=== PATIENT | female | born 1960 | race Two or more races ===

== ENCOUNTER 2020-11-22 20:08 | Inpatient (IN) | payer BC, MEDICAID ==
[~2020-11-22] VITALS: Ht 162.6 cm; Wt 96.8 kg
[2020-11-22 20:42] LABS: Basophils # (auto) 0.1 10 ^3/uL (0-0.2); Basophils % (auto) 0.7 % (0.0-2.0); Eosinophils # (auto) 0.4 10 ^3/uL (0-0.8); Eosinophils % (auto) 2.7 % (0.0-7.0); Hematocrit 36.8 % (36.0-46.0); Hemoglobin 12.6 g/dL (12.2-16.2); Lymphocytes # (auto) 3.1 10 ^3/uL (0.4-5.4); Lymphocytes % (auto) 22.7 % (10.0-50.0); Mean Corpuscular Hemoglobin 30.2 pg (28.0-32.0); Mean Corpuscular Hgb Conc. 34.3 g/dL (32.0-36.0); Mean Corpuscular Volume 88.1 fL (80.0-100.0); Monocytes # (auto) 1.1 10 ^3/uL (0-1.3); Monocytes % (auto) 8.2 % (0.0-12.0); Neutrophils # (auto) 9.1 10 ^3/uL (1.6-8.6); Neutrophils % (auto) 65.7 % (37.0-80.0); Red Blood Cells 4.18 10^6/uL (4.0-5.20); White Blood Cell 13.8 10^3/uL (4.4-10.8)
[2020-11-22 20:54] LABS: Alanine Aminotransferase 76 U/L (13-56); Albumin 2.7 g/dL (3.4-5.0); Amylase 49 U/L (25-115); Anion Gap 10 (5-15); Aspartate Aminotransferase 23 U/L (15-37); BUN/Creatinine Ratio 14.3; Blood Urea Nitrogen 12 mg/dL (7-18); Calcium 8.3 mg/dL (8.5-10.1); Carbon Dioxide 24 mmol/L (21-32); Chloride 101 mmol/L (98-107); GFR African American 89 mL/min; GFR Non-African American 74 mL/min; Glucose 106 mg/dL (74-106); Lipase 127 U/L (73-393); Potassium 3.4 mmol/L (3.5-5.1); Sodium 135 mmol/L (136-145)
[2020-11-22 20:59] LABS: Alkaline Phosphatase 172 U/L (45-117); Bilirubin, Total 0.3 mg/dL (0.2-1.0); Total Protein 8.2 g/dL (6.4-8.2)
[2020-11-22] MEDS ORDERED: IOHEXOL 300 MG/ML 100ML BOTTLE IJ ONE (21:22)
[2020-11-22 21:44] LABS: Urine Bacteria FEW /hpf (None Seen); Urine Blood 2+ /uL (Negative); Urine Hyaline Cast MOD /lpf (0 - 2); Urine Mucus FEW (None Seen); Urine Specific Gravity 1.036 (1.001-1.035); Urine WBC 33 /hpf (0 - 5)
[2020-11-22] MEDS ORDERED: levoFLOXacin 750MG 150 ML IV ONE (23:00)
[2020-11-22] MEDS ORDERED: metroNIDAZOLE 500MG/100ML 100 ML IV ONE (23:00)
[2020-11-22] MEDS ORDERED: fentaNYL CITRATE 100 MCG/2 ML VL IV ONE (23:00)
[2020-11-23] VITALS (7 sets, daily range): BP systolic 131–155; BP diastolic 64–80
[2020-11-23] MEDS ORDERED: NITROGLYCERIN 0.4 MG SL TAB SL PRN (00:15)
[2020-11-23] MEDS ORDERED: MORPHINE SULF INJ 2 MG/ML SYRINGE 1ML IV PRN (00:15)
[2020-11-23] MEDS ORDERED: DOCUSATE SOD 100 MG CAP PO PRN (00:15)
[2020-11-23] MEDS ORDERED: POTASSIUM CHL 20 Meq TABLET PO ONE (00:15)
[2020-11-23] MEDS ORDERED: TEMAZEPAM 15 MG CAP PO PRN (00:15)
[2020-11-23] MEDS: D5W/SOD CHLO 0.9% 1,000 ML IV SCH ×2 (00:54→14:28)
[2020-11-23] MEDS: ONDANSETRON HCL 4 MG/2 ML VIAL IV PRN ×2 (02:09→10:51)
[2020-11-23] MEDS ORDERED: SUCR1TAB PO (03:57)
[2020-11-23] MEDS ORDERED: OMEP20TA PO (03:57)
[2020-11-23] MEDS ORDERED: ACET-1156 PO (03:57)
[2020-11-23] MEDS ORDERED: FLUC150T2 PO (03:57)
[2020-11-23] MEDS: metroNIDAZOLE 500MG/100ML 100 ML IV SCH ×3 (05:54→21:17)
[2020-11-23 06:13] LABS: Basophils # (auto) 0.1 10 ^3/uL (0-0.2); Basophils % (auto) 0.5 % (0.0-2.0); Eosinophils # (auto) 0.1 10 ^3/uL (0-0.8); Eosinophils % (auto) 0.8 % (0.0-7.0); Hematocrit 34.4 % (36.0-46.0); Hemoglobin 11.9 g/dL (12.2-16.2); Lymphocytes # (auto) 1.4 10 ^3/uL (0.4-5.4); Lymphocytes % (auto) 12.6 % (10.0-50.0); Mean Corpuscular Hemoglobin 30.2 pg (28.0-32.0); Mean Corpuscular Hgb Conc. 34.5 g/dL (32.0-36.0); Mean Corpuscular Volume 87.5 fL (80.0-100.0); Monocytes # (auto) 0.8 10 ^3/uL (0-1.3); Monocytes % (auto) 6.9 % (0.0-12.0); Neutrophils # (auto) 8.8 10 ^3/uL (1.6-8.6); Neutrophils % (auto) 79.2 % (37.0-80.0); Nucleated Red Blood Cells % 0.1 %; Red Blood Cells 3.94 10^6/uL (4.0-5.20); Red Cell Distribution Width 13.9 % (11.8-14.3)
[2020-11-23 06:14] LABS: Potassium 3.8 mmol/L (3.5-5.1)
[2020-11-23 06:21] LABS: Albumin 2.5 g/dL (3.4-5.0); BUN/Creatinine Ratio 14.3; Bilirubin, Total 0.3 mg/dL (0.2-1.0); Calcium 8.1 mg/dL (8.5-10.1); Total Protein 7.5 g/dL (6.4-8.2)
[2020-11-23] MEDS ORDERED: FAMOTIDINE 20 MG TAB PO SCH (10:00)
[2020-11-23] MEDS: ZINC SULFATE 220mg CAP or TAB PO SCH (10:46)
[2020-11-23] MEDS: ASCORBIC ACID 500 MG TAB PO SCH ×2 (10:46→21:18)
[2020-11-23] MEDS: ENOXAPARIN SOD 40 MG/0.4 ML SYRINGE SC SCH (10:47)
[2020-11-23] MEDS: MULTIPLE VITAMIN TAB PO SCH (10:47)
[2020-11-23] MEDS: hydrALAZINE HCL 20 MG/ML VL IV PRN (12:21)
[2020-11-23] MEDS ORDERED: PANTOPRAZOLE 40 MG TAB PO ONE (12:45)
[2020-11-23 14:10] LABS: INR 1.09 (0.9-1.15)
[2020-11-23] MEDS: ACETAMINOPHEN 325 MG TAB PO PRN (14:27)
[2020-11-23] MEDS: SUCRALFATE 1 GM/10 ML ORAL SUSP PO SCH ×2 (17:31→21:18)
[2020-11-23] MEDS: PANTOPRAZOLE 40 MG TAB PO SCH (21:18)
[2020-11-23] MEDS: levoFLOXacin 500MG 100 ML IV SCH (22:40)
[2020-11-24] MEDS: D5W/SOD CHLO 0.9% 1,000 ML IV SCH ×2 (02:55→16:11)
[2020-11-24] MEDS: ACETAMINOPHEN 325 MG TAB PO PRN ×2 (04:12→20:32)
[2020-11-24 04:44] VITALS: BP 152/76
[2020-11-24 05:57] LABS: Basophils # (auto) 0 10 ^3/uL (0-0.2); Basophils % (auto) 0.3 % (0.0-2.0); Eosinophils # (auto) 0.1 10 ^3/uL (0-0.8); Eosinophils % (auto) 1.2 % (0.0-7.0); Hematocrit 30.8 % (36.0-46.0); Hemoglobin 10.8 g/dL (12.2-16.2); Lymphocytes # (auto) 1.7 10 ^3/uL (0.4-5.4); Lymphocytes % (auto) 17.4 % (10.0-50.0); Mean Corpuscular Hemoglobin 30.8 pg (28.0-32.0); Mean Corpuscular Hgb Conc. 35.1 g/dL (32.0-36.0); Mean Corpuscular Volume 87.7 fL (80.0-100.0); Monocytes # (auto) 0.8 10 ^3/uL (0-1.3); Monocytes % (auto) 7.8 % (0.0-12.0); Neutrophils # (auto) 7.1 10 ^3/uL (1.6-8.6); Neutrophils % (auto) 73.3 % (37.0-80.0); Nucleated Red Blood Cells % 0.1 %; Red Blood Cells 3.52 10^6/uL (4.0-5.20); Red Cell Distribution Width 14.2 % (11.8-14.3); White Blood Cell 9.7 10^3/uL (4.4-10.8)
[2020-11-24 06:13] LABS: Albumin 2.1 g/dL (3.4-5.0); Calcium 8.2 mg/dL (8.5-10.1); Potassium 3.5 mmol/L (3.5-5.1)
[2020-11-24 06:16] LABS: BUN/Creatinine Ratio 7.8
[2020-11-24 06:19] LABS: Bilirubin, Total 0.2 mg/dL (0.2-1.0); Total Protein 6.5 g/dL (6.4-8.2)
[2020-11-24] MEDS: metroNIDAZOLE 500MG/100ML 100 ML IV SCH ×3 (06:23→21:38)
[2020-11-24] MEDS: SUCRALFATE 1 GM/10 ML ORAL SUSP PO SCH ×4 (06:23→21:38)
[2020-11-24 06:45] VITALS: BP 145/70
[2020-11-24 09:00] VITALS: BP 122/69
[2020-11-24] MEDS: ASCORBIC ACID 500 MG TAB PO SCH ×2 (09:56→21:38)
[2020-11-24] MEDS: MULTIPLE VITAMIN TAB PO SCH (09:56)
[2020-11-24] MEDS: ENOXAPARIN SOD 40 MG/0.4 ML SYRINGE SC SCH (09:56)
[2020-11-24] MEDS: ZINC SULFATE 220mg CAP or TAB PO SCH (09:56)
[2020-11-24] MEDS: PANTOPRAZOLE 40 MG TAB PO SCH ×2 (09:56→21:38)
[2020-11-24 12:46] VITALS: BP 153/79
[2020-11-24] MEDS: hydrALAZINE HCL 20 MG/ML VL IV PRN (16:30)
[2020-11-24 16:37] VITALS: BP 166/77
[2020-11-24 22:00] VITALS: BP 145/75
[2020-11-24] MEDS: levoFLOXacin 500MG 100 ML IV SCH (22:59)
[2020-11-25] MEDS: SUCRALFATE 1 GM/10 ML ORAL SUSP PO SCH ×4 (05:42→21:41)
[2020-11-25] MEDS: metroNIDAZOLE 500MG/100ML 100 ML IV SCH ×3 (05:42→21:41)
[2020-11-25 05:47] VITALS: BP 146/82
[2020-11-25] MEDS: D5W/SOD CHLO 0.9% 1,000 ML IV SCH ×2 (06:33→18:55)
[2020-11-25 09:00] VITALS: BP 139/68
[2020-11-25] MEDS: MULTIPLE VITAMIN TAB PO SCH (09:41)
[2020-11-25] MEDS: ENOXAPARIN SOD 40 MG/0.4 ML SYRINGE SC SCH (09:41)
[2020-11-25] MEDS: ZINC SULFATE 220mg CAP or TAB PO SCH (09:41)
[2020-11-25] MEDS: PANTOPRAZOLE 40 MG TAB PO SCH ×2 (09:41→21:41)
[2020-11-25] MEDS: ACETAMINOPHEN 325 MG TAB PO PRN (09:41)
[2020-11-25] MEDS: ASCORBIC ACID 500 MG TAB PO SCH ×2 (09:41→21:42)
[2020-11-25 11:13] LABS: Hepatitis B Surface Antibody Negative
[2020-11-25 11:50] LABS: Hepatitis A Total Antibody Negative
[2020-11-25 13:00] VITALS: BP 156/85
[2020-11-25 13:12] LABS: Basophils # (auto) 0.1 10 ^3/uL (0-0.2); Basophils % (auto) 1.2 % (0.0-2.0); Eosinophils # (auto) 0.1 10 ^3/uL (0-0.8); Eosinophils % (auto) 1.3 % (0.0-7.0); Hematocrit 35.6 % (36.0-46.0); Hemoglobin 12.2 g/dL (12.2-16.2); Lymphocytes # (auto) 2.3 10 ^3/uL (0.4-5.4); Lymphocytes % (auto) 26.7 % (10.0-50.0); Mean Corpuscular Hemoglobin 30.2 pg (28.0-32.0); Mean Corpuscular Hgb Conc. 34.4 g/dL (32.0-36.0); Mean Corpuscular Volume 87.8 fL (80.0-100.0); Monocytes # (auto) 0.6 10 ^3/uL (0-1.3); Monocytes % (auto) 6.5 % (0.0-12.0); Neutrophils # (auto) 5.6 10 ^3/uL (1.6-8.6); Neutrophils % (auto) 64.3 % (37.0-80.0); Red Blood Cells 4.05 10^6/uL (4.0-5.20); Red Cell Distribution Width 14.4 % (11.8-14.3); White Blood Cell 8.8 10^3/uL (4.4-10.8)
[2020-11-25 13:18] LABS: Hepatitis B Core Total AB Negative
[2020-11-25 13:19] LABS: Hepatitis B Surface Antigen Negative (Negative)
[2020-11-25 13:29] LABS: Calcium 8.6 mg/dL (8.5-10.1); Potassium 3.4 mmol/L (3.5-5.1)
[2020-11-25 13:35] LABS: Albumin 2.7 g/dL (3.4-5.0); BUN/Creatinine Ratio 4.6; Bilirubin, Total 0.2 mg/dL (0.2-1.0); Total Protein 7.7 g/dL (6.4-8.2)
[2020-11-25 17:20] VITALS: BP 150/77
[2020-11-25] MEDS: hydrALAZINE HCL 20 MG/ML VL IV PRN (21:40)
[2020-11-25] MEDS: levoFLOXacin 500MG 100 ML IV SCH (22:48)
[2020-11-25] MEDS: HYDROcodone-ACET 5/325MG TAB PO PRN (23:03)
[2020-11-26 05:00] VITALS: BP 146/76
[2020-11-26] MEDS: SUCRALFATE 1 GM/10 ML ORAL SUSP PO SCH ×4 (07:06→22:00)
[2020-11-26] MEDS: metroNIDAZOLE 500MG/100ML 100 ML IV SCH ×3 (07:06→21:36)
[2020-11-26] MEDS: D5W/SOD CHLO 0.9% 1,000 ML IV SCH (08:15)
[2020-11-26 09:00] VITALS: BP 158/72
[2020-11-26] MEDS: PANTOPRAZOLE 40 MG TAB PO SCH ×2 (09:56→21:36)
[2020-11-26] MEDS: MULTIPLE VITAMIN TAB PO SCH (09:57)
[2020-11-26] MEDS: ENOXAPARIN SOD 40 MG/0.4 ML SYRINGE SC SCH (09:57)
[2020-11-26] MEDS: ZINC SULFATE 220mg CAP or TAB PO SCH (09:57)
[2020-11-26] MEDS: ASCORBIC ACID 500 MG TAB PO SCH ×2 (09:57→21:36)
[2020-11-26 10:21] LABS: Basophils # (auto) 0 10 ^3/uL (0-0.2); Basophils % (auto) 0.2 % (0.0-2.0); Eosinophils # (auto) 0.1 10 ^3/uL (0-0.8); Eosinophils % (auto) 1.6 % (0.0-7.0); Hematocrit 36.3 % (36.0-46.0); Hemoglobin 12.5 g/dL (12.2-16.2); Lymphocytes # (auto) 2.2 10 ^3/uL (0.4-5.4); Lymphocytes % (auto) 25.1 % (10.0-50.0); Mean Corpuscular Hemoglobin 30.2 pg (28.0-32.0); Mean Corpuscular Hgb Conc. 34.4 g/dL (32.0-36.0); Mean Corpuscular Volume 87.7 fL (80.0-100.0); Monocytes # (auto) 0.7 10 ^3/uL (0-1.3); Monocytes % (auto) 8.7 % (0.0-12.0); Neutrophils # (auto) 5.5 10 ^3/uL (1.6-8.6); Neutrophils % (auto) 64.4 % (37.0-80.0); Nucleated Red Blood Cells % 0.1 %; Red Blood Cells 4.14 10^6/uL (4.0-5.20); Red Cell Distribution Width 14.4 % (11.8-14.3); White Blood Cell 8.6 10^3/uL (4.4-10.8)
[2020-11-26 10:41] LABS: Calcium 8.8 mg/dL (8.5-10.1); Potassium 3.4 mmol/L (3.5-5.1)
[2020-11-26 12:30] VITALS: BP 153/78
[2020-11-26 17:00] VITALS: BP 149/68
[2020-11-26] MEDS: levoFLOXacin 500MG 100 ML IV SCH (20:33)
[2020-11-26 22:00] VITALS: BP 136/77
[2020-11-27 05:00] VITALS: BP 139/78
[2020-11-27] MEDS: metroNIDAZOLE 500MG/100ML 100 ML IV SCH ×3 (06:00→21:34)
[2020-11-27] MEDS: SUCRALFATE 1 GM/10 ML ORAL SUSP PO SCH ×4 (06:32→21:33)
[2020-11-27] MEDS ORDERED: LIDOCAINE W/ EPINEPHRINE 1% 20ML VIAL ONE (06:59)
[2020-11-27] MEDS ORDERED: BUPIVACAINE 0.25% INJ 50ML VIAL ONE (06:59)
[2020-11-27 08:00] VITALS: BP 143/80
[2020-11-27] MEDS ORDERED: ONDANSETRON HCL 4 MG/2 ML VIAL IV ONE (08:10)
[2020-11-27] MEDS ORDERED: ceFAZolin 1GM/50ML 100 ML IV ONE (08:19)
[2020-11-27] MEDS ORDERED: SUCCINYLCHOLINE CHLORIDE 20 MG/ML 10ML VIAL IV ONE (08:32)
[2020-11-27] MEDS ORDERED: fentaNYL CITRATE 5 ML ONE (08:35)
[2020-11-27] MEDS ORDERED: MIDAZOLAM HCL 1MG/1ML-2 ML VIAL ONE (08:35)
[2020-11-27] MEDS ORDERED: ROCURONIUM 10MG/ML 10ML VIAL IV ONE (08:35)
[2020-11-27] MEDS: ENOXAPARIN SOD 40 MG/0.4 ML SYRINGE SC SCH (10:00)
[2020-11-27] MEDS ORDERED: GLYCOPYRROLATE 0.2 MG/ML 1ML VIAL ONE (10:16)
[2020-11-27] MEDS ORDERED: NEOSTIGMINE 1 MG/ML INJ (10mg/10ML VIAL) ONE (10:16)
[2020-11-27] MEDS ORDERED: HYDROmorphone HCL 2 MG/ML VL ONE (10:37)
[2020-11-27] MEDS: HYDROmorphone HCL 2 MG/ML VL IV PRN ×3 (10:40→11:00)
[2020-11-27] MEDS ORDERED: HYDROmorphone HCL 2 MG/ML VL IV PRN (10:45)
[2020-11-27] MEDS ORDERED: ONDANSETRON HCL 4 MG/2 ML VIAL IV PRN (10:45)
[2020-11-27] MEDS: MULTIPLE VITAMIN TAB PO SCH (12:14)
[2020-11-27] MEDS: PANTOPRAZOLE 40 MG TAB PO SCH ×2 (12:14→21:34)
[2020-11-27] MEDS: ASCORBIC ACID 500 MG TAB PO SCH ×2 (12:14→21:34)
[2020-11-27] MEDS: ZINC SULFATE 220mg CAP or TAB PO SCH (12:15)
[2020-11-27 13:00] VITALS: BP 142/75
[2020-11-27] MEDS: ONDANSETRON HCL 4 MG/2 ML VIAL IV PRN ×2 (13:14→23:14)
[2020-11-27] MEDS: HYDROcodone-ACET 5/325MG TAB PO PRN ×2 (13:19→20:24)
[2020-11-27] MEDS: ACETAMINOPHEN 325 MG TAB PO PRN (16:12)
[2020-11-27 17:00] VITALS: BP 143/78
[2020-11-27] MEDS: MORPHINE SULFATE 4 MG/ML SYR/VIAL IV PRN ×2 (19:09→23:14)
[2020-11-27] MEDS: levoFLOXacin 500MG 100 ML IV SCH (20:24)
[2020-11-27 22:00] VITALS: BP_SYST 120; BP_SYST 146; BP_DIAS 61; BP_DIAS 75
[2020-11-28] MEDS: HYDROcodone-ACET 5/325MG TAB PO PRN ×2 (01:23→05:45)
[2020-11-28 05:00] VITALS: BP 128/72
[2020-11-28] MEDS: metroNIDAZOLE 500MG/100ML 100 ML IV SCH ×2 (05:45→14:12)
[2020-11-28] MEDS: SUCRALFATE 1 GM/10 ML ORAL SUSP PO SCH ×3 (06:48→17:00)
[2020-11-28 09:07] VITALS: BP 143/81
[2020-11-28] MEDS: ZINC SULFATE 220mg CAP or TAB PO SCH (09:18)
[2020-11-28] MEDS: ASCORBIC ACID 500 MG TAB PO SCH (09:18)
[2020-11-28] MEDS: MULTIPLE VITAMIN TAB PO SCH (09:18)
[2020-11-28] MEDS: PANTOPRAZOLE 40 MG TAB PO SCH (09:18)
[2020-11-28] MEDS: ENOXAPARIN SOD 40 MG/0.4 ML SYRINGE SC SCH (09:18)
[2020-11-28] MEDS: ONDANSETRON HCL 4 MG/2 ML VIAL IV PRN (09:19)
[2020-11-28] MEDS ORDERED: METR500T PO (11:25)
[2020-11-28] MEDS ORDERED: PANT40T PO (11:25)
[2020-11-28 13:00] VITALS: BP 167/91
[2020-11-28 14:23] VITALS: BP 167/91
[2020-11-28 16:52] VITALS: BP 138/78
[2020-12-02 13:52] LABS: Hepatitis C Antibody Negative (Negative)
== END 2020-11-28 17:01 | disposition home or self-care (01) | DRG 263 ==
LOC: ER 20:08 → OVERFLOW 11-23 00:17 → WEST WING 11-23 01:22
PROVIDERS: ADMIT Nurse Practitioner Family; ATTEND Internal Medicine Pulmonary Disease
PROC: 0FT44ZZ Resection of Gallbladder, Percutaneous Endoscopic Approach (ICD-10-PCS; principal; 2020-11-27 09:04)
DX: K80.21 Calculus of gallbladder without cholecystitis with obstruction (principal); N17.0 Acute kidney failure with tubular necrosis; E44.0 Moderate protein-calorie malnutrition; E87.1 Hypo-osmolality and hyponatremia; N12 Tubulo-interstitial nephritis, not specified as acute or chronic; K86.1 Other chronic pancreatitis; D72.829 Elevated white blood cell count, unspecified; E66.9 Obesity, unspecified; E87.6 Hypokalemia; N18.9 Chronic kidney disease, unspecified; I12.9 Hypertensive chronic kidney disease with stage 1 through stage 4 chronic kidney disease, or unspecified chronic kidney disease; D63.8 Anemia in other chronic diseases classified elsewhere; Z20.822 Contact with and (suspected) exposure to COVID-19; Z82.49 Family history of ischemic heart disease and other diseases of the circulatory system; Z95.1 Presence of aortocoronary bypass graft; Z98.51 Tubal ligation status; Z68.36 Body mass index [BMI] 36.0-36.9, adult
CPT/HCPCS: 36415; 71045; 74177; 74181; 76705; 80048; 80053; 80320; 81001; 82150; 83690; 83735; 84443; 84484; 85025; 85049; 85610; 86704; 86706; 86708; 86803; 86850; 86900; 86901; 87086; 87340; 87426; 93005; 96365; 96368; 96375; G0378; J0330; J0690; J1956; J2250; J2405; J3490; J7042